=== PATIENT | male | born 1995 | race Caucasian/White ===

== ENCOUNTER 2017-11-06 10:05 | Emergency (ER) | payer SELFPAY ==
[2016-09-07 09:07] VITALS: Ht 175.3 cm; Wt 69.9 kg
[~2017-11-06] VITALS: Ht 175.3 cm; Wt 69.9 kg
[~2017-11-06 10:05] MED LIST: ATO10 PO; BUPR-133 PO; FEXO180T74 PO; FLU10 PO; LOR10 PO; MULT-1379 PO; PROAIRPT IH; RIS1 PO; RISP1SOL PO; SERT-1 PO; SERT-173 PO; TRAZ-156 PO; [UNRECOGNIZED DRUG - CODE] IH
[2017-11-06] MEDS ORDERED: NS(*) 0.9% 1000 ML BAG 1,000 ML IV ONE ×2 (10:07)
[2017-11-06] MEDS ORDERED: ONDANSETRON 4 MG/2 ML VIAL IVP ONE (10:10)
--- NOTE | 2017-11-06 10:13 | ER Report ---
History and Physical Time Seen By MD: 10:11 HPI/ROS CHIEF COMPLAINT: Persistent vomiting HISTORY OF PRESENT ILLNESS: 22-year-old male who went out drinking last night had significantly too much alcohol and started vomiting about 2 hours prior to presentation and has been not able to hold anything down patient otherwise unremarkable some mild epigastric discomfort otherwise negative no additional complaints noted REVIEW OF SYSTEMS: Respiratory: No cough, no dyspnea. Cardiovascular: No chest pain, no palpitations. Gastrointestinal: has vomiting, no abdominal pain. Musculoskeletal: No back pain. Remainder of the 14 system rev: Yes Allergies: Coded Allergies: No Known Drug Allergies (Unverified , 10/09/17) Home Meds No Active Prescriptions or Reported Meds Reviewed Nurses Notes: Yes Old Medical Records Reviewed: Yes Hx Smoking: Yes Smoking Status: Current: Some Days Smoker Exposure to Second Hand Smoke?: Yes Hx Substance Use Disorder: Yes Hx Alcohol Use: Yes Constitutional Vital Sign - Last 24 Hours 11/06/17 10:10 Pulse 81 Resp 16 Pulse Ox 98 O2 Delivery Room Air Physical Exam General Appearance: The patient is alert, has no immediate need for airway protection and no current signs of toxicity. Appears ill no active vomiting Eyes: Pupils equal and round no injection. Respiratory: Chest is non tender, lungs are clear to auscultation. Cardiac: regular rate and rhythm [ ] Gastrointestinal: Abdomen is soft and non tender, no masses, bowel sounds normal. Musculoskeletal: Neck: Neck is supple and non tender. Extremities have full range of motion and are non tender. Skin: No rashes or lesions. [ ] DIFFERENTIAL DIAGNOSIS: After history and physical exam differential diagnosis was considered for alcoholic gastritis alcoholic induced vomiting alcohol abuse Medical Decision Making Data Points Result Diagram: 11/06/17 1025 11/06/17 1025 Laboratory Hematology Test 11/06/17 10:12 11/06/17 10:25 Urine Color Yellow Urine Clarity Clear Urine pH 6.0 pH (4.8-9.5) Urine Specific [place] 1.025 Urine Protein 100 mg/dL (NEGATIVE) Urine Glucose (UA) Negative mg/dL (NEGATIVE) Urine Ketones Trace mg/dL (NEGATIVE) Urine Blood Negative (NEGATIVE) Urine Nitrite Negative (NEGATIVE) Urine Bilirubin Negative (NEGATIVE) Urine Urobilinogen 2.0 mg/dL (0.2-1.9) Urine Leukocyte Esterase Negative (NEGATIVE) Urine RBC <1 /HPF (0-2/HPF) Urine WBC <1 /HPF (0-5/HPF) Urine Squamous Epithelial Cells None /LPF (</=FEW) Urine Transitional Epithelial Cells Few /LPF (NONE-FEW) Urine Bacteria Negative /HPF (NONE-FEW) Urine Mucus Few /HPF (NONE-FEW) Red Blood Count 6.07 M/uL (4.00-5.60) Mean Corpuscular Volume 88.6 fL (80.0-96.0) Mean Corpuscular Hemoglobin 30.4 pg (26.0-33.0) Mean Corpuscular Hemoglobin Concent 34.3 g/dL (32.0-36.0) Red Cell Distribution Width 13.5 % (11.5-14.5) Mean Platelet Volume 8.3 fL (7.2-11.1) Neutrophils (%) (Auto) 88.2 % (39.4-72.5) Lymphocytes (%) (Auto) 5.9 % (17.6-49.6) Monocytes (%) (Auto) 4.8 % (4.1-12.4) Eosinophils (%) (Auto) 0.5 % (0.4-6.7) Basophils (%) (Auto) 0.6 % (0.3-1.4) Nucleated RBC Relative Count (auto) 0.0 /100WBC Neutrophils # (Auto) 15.3 K/uL (2.0-7.4) Lymphocytes # (Auto) 1.0 K/uL (1.3-3.6) Monocytes # (Auto) 0.8 K/uL (0.3-1.0) Eosinophils # (Auto) 0.1 K/uL (0.0-0.5) Basophils # (Auto) 0.1 K/uL (0.0-0.1) Nucleated RBC Absolute Count (auto) 0.00 K/uL Sodium Level 143 mmol/L (137-145) Potassium Level 4.0 mmol/L (3.5-5.0) Chloride Level 105 mmol/L (98-107) Carbon Dioxide Level 23 mmol/L (22-30) Blood Urea Nitrogen 12 mg/dl (9-21) Creatinine 0.80 mg/dl (0.66-1.25) Glomerular Filtration Rate Calc > 60.0 Random Glucose 120 mg/dl (75-110) Calcium Level 10.0 mg/dl (8.4-10.2) Total Bilirubin 0.7 mg/dl (0.2-1.3) Aspartate Amino Transf (AST/SGOT) 25 U/L (0-35) Alanine Aminotransferase (ALT/SGPT) 45 U/L (0-56) Alkaline Phosphatase 96 U/L (0-126) Total Protein 8.2 gm/dl (6.3-8.2) Albumin 5.0 g/dl (3.5-5.0) Lipase 29 U/L (23-300) Serum Alcohol 66 mg/dl Chemistry Test 11/06/17 10:12 11/06/17 10:25 Urine Color Yellow Urine Clarity Clear Urine pH 6.0 pH (4.8-9.5) Urine Specific [place] 1.025 Urine Protein 100 mg/dL (NEGATIVE) Urine Glucose (UA) Negative mg/dL (NEGATIVE) Urine Ketones Trace mg/dL (NEGATIVE) Urine Blood Negative (NEGATIVE) Urine Nitrite Negative (NEGATIVE) Urine Bilirubin Negative (NEGATIVE) Urine Urobilinogen 2.0 mg/dL (0.2-1.9) Urine Leukocyte Esterase Negative (NEGATIVE) Urine RBC <1 /HPF (0-2/HPF) Urine WBC <1 /HPF (0-5/HPF) Urine Squamous Epithelial Cells None /LPF (</=FEW) Urine Transitional Epithelial Cells Few /LPF (NONE-FEW) Urine Bacteria Negative /HPF (NONE-FEW) Urine Mucus Few /HPF (NONE-FEW) White Blood Count 17.3 k/uL (4.5-11.0) Red Blood Count 6.07 M/uL (4.00-5.60) Hemoglobin 18.5 g/dL (14.0-18.0) Hematocrit 53.8 % (42.0-52.0) Mean Corpuscular Volume 88.6 fL (80.0-96.0) Mean Corpuscular Hemoglobin 30.4 pg (26.0-33.0) Mean Corpuscular Hemoglobin Concent 34.3 g/dL (32.0-36.0) Red Cell Distribution Width 13.5 % (11.5-14.5) Platelet Count 329 K/uL (150-450) Mean Platelet Volume 8.3 fL (7.2-11.1) Neutrophils (%) (Auto) 88.2 % (39.4-72.5) Lymphocytes (%) (Auto) 5.9 % (17.6-49.6) Monocytes (%) (Auto) 4.8 % (4.1-12.4) Eosinophils (%) (Auto) 0.5 % (0.4-6.7) Basophils (%) (Auto) 0.6 % (0.3-1.4) Nucleated RBC Relative Count (auto) 0.0 /100WBC Neutrophils # (Auto) 15.3 K/uL (2.0-7.4) Lymphocytes # (Auto) 1.0 K/uL (1.3-3.6) Monocytes # (Auto) 0.8 K/uL (0.3-1.0) Eosinophils # (Auto) 0.1 K/uL (0.0-0.5) Basophils # (Auto) 0.1 K/uL (0.0-0.1) Nucleated RBC Absolute Count (auto) 0.00 K/uL Glomerular Filtration Rate Calc > 60.0 Calcium Level 10.0 mg/dl (8.4-10.2) Total Bilirubin 0.7 mg/dl (0.2-1.3) Aspartate Amino Transf (AST/SGOT) 25 U/L (0-35) Alanine Aminotransferase (ALT/SGPT) 45 U/L (0-56) Alkaline Phosphatase 96 U/L (0-126) Total Protein 8.2 gm/dl (6.3-8.2) Albumin 5.0 g/dl (3.5-5.0) Lipase 29 U/L (23-300) Serum Alcohol 66 mg/dl Toxicology Test 11/06/17 10:25 Serum Alcohol 66 mg/dl Urinalysis Test 11/06/17 10:12 Urine Color Yellow Urine Clarity Clear Urine pH 6.0 pH (4.8-9.5) Urine Specific [place] 1.025 Urine Protein 100 mg/dL (NEGATIVE) Urine Glucose (UA) Negative mg/dL (NEGATIVE) Urine Ketones Trace mg/dL (NEGATIVE) Urine Blood Negative (NEGATIVE) Urine Nitrite Negative (NEGATIVE) Urine Bilirubin Negative (NEGATIVE) Urine Urobilinogen 2.0 mg/dL (0.2-1.9) Urine Leukocyte Esterase Negative (NEGATIVE) Urine RBC <1 /HPF (0-2/HPF) Urine WBC <1 /HPF (0-5/HPF) Urine Squamous Epithelial Cells None /LPF (</=FEW) Urine Transitional Epithelial Cells Few /LPF (NONE-FEW) Urine Bacteria Negative /HPF (NONE-FEW) Urine Mucus Few /HPF (NONE-FEW) ED Course/Re-evaluation ED Course 22-year-old male given emergency department today after having heavy intoxicating alcohol consumption last night alcohol level still 66 on arrival here proximated to 10 hours after reportedly last consumption clearly dehydrated get 2 L of fluid basin labs were relatively unremarkable feels better with antiemetics diagnosis will be 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
[2017-11-06 10:47] LABS: PLATELET COUNT, AUTOMATED 329 K/uL (150-450)
[2017-11-06 11:22] VITALS: BP 135/81
== END 2017-11-06 11:25 | disposition home or self-care (01) ==
LOC: ER 10:32
DX: F10.920 Alcohol use, unspecified with intoxication, uncomplicated (principal); Y90.3 Blood alcohol level of 60-79 mg/100 ml
CPT/HCPCS: 80320; 81001; 83690; 85025; 96361; 96374; 99284; J2405; J7030; 82040; 82247; 82310; 82374; 82435; 82565; 82947; 84075; 84132; 84155; 84295; 84450; 84460; 84520

== ENCOUNTER 2017-11-30 12:18 | Emergency (ER) | payer OTHER ==
[2016-09-07 09:07] VITALS: Ht 172.7 cm; Wt 72.6 kg
[~2017-11-30] VITALS: Ht 172.7 cm; Wt 72.6 kg
[~2017-11-30 12:18] MED LIST changes: -SERT-173 PO; +SERT20OR6 PO
--- NOTE | 2017-11-30 13:03 | ER Report ---
History and Physical Time Seen By MD: 12:27 Hx. of Stated Complaint: pt reports he was crawling out of an airspace unit after vacuuming, tried to step down on a ladder,ladder was not stable. pt fell backwards ~5ft off ground and hit back of head on metal vent with helmet on. pt states his helmet came off after "bouncing off of metal" and hit his head again. pt denies loc, neck and back pain. a&ox4, reports sensitivity to light and headache HPI/ROS CHIEF COMPLAINT: Head injury HISTORY OF PRESENT ILLNESS: 22-year-old male patient presents to emergency room with complaint of a fall. Patient states that he was at work and was climbing out of some duct work when he stepped on a ladder that was unstable. States when he was with him in the latter fell over him when he did he fell backwards falling approximate 5 feet and hit his head on the ground. He states that he lost his heart had during that time and his head again. He denies having any loss consciousness, neck pain, nausea, vomiting. Patient states that he does have a headache and does feel slightly dizzy. REVIEW OF SYSTEMS: Respiratory: No cough, no dyspnea. Cardiovascular: No chest pain, no palpitations. Gastrointestinal: No vomiting, no abdominal pain. Musculoskeletal: No back pain. Allergies: Coded Allergies: No Known Drug Allergies (Unverified , 11/30/17) Home Meds Active Scripts Ketorolac Tromethamine (KETOROLAC TROMETHAMINE) 10 Mg Tab, 10 MG PO Q6H, #20 TAB Prov:GAIL CASTANO JAYESH 11/30/17 Past Medical/Surgical History Patient has a past medical history of asthma, arthritis, fractures, back pain, substance abuse, alcohol use, PTSD, anger issues, anxiety, ADHD, suicide attempt. Patient has a surgical history of bilateral shoulder surgery Reviewed Nurses Notes: Yes Hx Smoking: Yes Smoking Status: Current: Some Days Smoker Exposure to Second Hand Smoke?: Yes Hx Substance Use Disorder: Yes Hx Alcohol Use: Yes Constitutional Vital Sign - Last 24 Hours 11/30/17 11/30/17 11/30/17 11/30/17 12:23 12:24 12:30 12:33 Temp 98.2 Pulse 60 74 Resp 16 B/P (MAP) 140/97 (111) 170/97 129/80 (96) Pulse Ox 97 96 O2 Delivery Room Air 11/30/17 11/30/17 11/30/17 11/30/17 12:38 12:43 12:48 12:58 Pulse 98 88 64 Pulse Ox 99 98 97 96 11/30/17 11/30/17 11/30/17 11/30/17 13:00 13:03 13:08 13:13 Pulse 72 73 63 B/P (MAP) 132/108 (116) Pulse Ox 97 97 97 11/30/17 11/30/17 11/30/17 11/30/17 13:18 13:23 13:28 13:30 Pulse 69 66 67 B/P (MAP) 131/57 (81) Pulse Ox 97 97 97 11/30/17 13:33 Pulse 60 Pulse Ox 97 Physical Exam General Appearance: The patient is alert, has no immediate need for airway protection and no current signs of toxicity. ENT: Tympanic membranes are pearly-tyson, auditory canals are patent, mucous membranes are moist. Respiratory: Chest is non tender, lungs are clear to auscultation. Cardiac: regular rate and rhythm Gastrointestinal: Abdomen is soft and non tender, no masses, bowel sounds normal. Musculoskeletal: Neck: Neck is supple and non tender. Extremities have full range of motion and are non tender. Skin: No rashes or lesions. Neuro: Patient is alert and oriented 4, cranial nerves II through XII grossly intact, patient was able to complete 3 word recall 3/3 at zero minutes, patient was unable to do serial sevens. DIFFERENTIAL DIAGNOSIS: After history and physical exam differential diagnosis was considered for concussion, intracranial bleed, skull fracture, cervical spine strain. Medical Decision Making EKG/Imaging Imaging HEAD W/O CONTRAST, C-SPINE W/O CONTRAST Provided history: fall from 5 feet, landing on head Additional pertinent history: none TECHNIQUE: Imaging was obtained from the skull base through the vertex, followed by spiral scan of the cervical spine without intravenous contrast. Source images were reformatted in the coronal sagittal planes. The cervical spine spiral source images were reformatted in the coronal and sagittal planes. One of the following dose optimization techniques was utilized in the performance of this exam: Automated exposure control; adjustment of the mA and/ or kV according to the patient's size; or use of an iterative reconstruction technique. Specific details can be referenced in the facility's radiology CT exam operational policy. COMPARISON STUDIES: None FINDINGS: BRAIN: Brain volume: Normal Acute cortical ischemia: None Chronic cortical and ganglionic ischemia: none significant Hemorrhage: None Masses / edema: None White matter: Normal Vessels: Normal Extra-axial: None significant Calvarium / scalp: Negative Skull base: Limited air cell development of the mastoid segments typically from old inflammatory disease. No acute mastoiditis. Visualized sinuses / orbits: negative CERVICAL SPINE: Extra-vertebral soft tissues: negative Acute bone and soft tissue findings: none Chronic / degenerative findings: none IMPRESSION: 1. Normal CT of the brain. No evidence of mass, acute ischemia or hemorrhage. 2. Normal assessment of the cervical spine. Report Dictated By: Francisco J Hoff MD at 11/30/2017 1:10 PM Report E-Signed By: Francisco J Hoff MD at 11/30/2017 1:14 PM ED Course/Re-evaluation ED Course Patient was admitted to examine, history and physical were obtained. Differential diagnoses were considered. On examination patient has no tenderness to his head nor his neck. A CT scan of the head and cervical spine were done. Those were read by the radiologist as negative. I discussed findings with patient. We will go ahead and discharge him home at this time. We'll go ahead and put him on an anti-inflammatory medication. He is return to emergency room if condition worsens. He is follow-up with his primary care provider next week with any concerns. Patient verbalized understanding and agreement. Decision to Disposition Date: Nov 30, 2017 Decision to Disposition Time: 13:23 Depart Departure Latest Vital Signs Vital Signs Date Time Temp Pulse Resp B/P (MAP) Pulse Ox O2 Delivery O2 Flow Rate FiO2 11/30/17 13:33 60 97 11/30/17 13:30 131/57 (81) 11/30/17 12:24 98.2 16 Room Air Impression: Primary Impression: Head contusion Additional Impression: Headache Condition: Improved Disposition: HOME OR SELF-CARE New Scripts Ketorolac Tromethamine (KETOROLAC TROMETHAMINE) 10 Mg Tab 10 MG PO Q6H, #20 TAB Prov: GAIL CASTANO JAYESH 11/30/17 Patient Instructions: Acute Headache (ED) Additional Instructions: Increase fluid intake. Get plenty of rest. Limit activity by pain. Follow up with your primary care provider in the next week. Return to the ER if condition worsens. You may take Tylenol as needed for pain. No ibuprofen while taking the Toradol. You may return to work tomorrow. Problem Qualifiers Primary Impression: Head contusion Encounter type: initial encounter Contusion of head detail: scalp Qualified Codes: S00.03XA - Contusion of scalp, initial encounter Additional Impression: Headache Headache type: post-traumatic Headache chronicity pattern: acute headache Intractability: not intractable Qualified Codes: G44.319 - Acute post- traumatic headache, not intractable GAIL CASTANO Nov 30, 2017 13:03
--- NOTE | 2017-11-30 13:19 | RADIOLOGY IMAGING REPORT ---
FACILITY: [facility] - [place] PATIENT NAME: Alejandro Mendez : 1995 MR: [id number] V: [id number] EXAM DATE: ORDERING PHYSICIAN: GAIL CASTANO TECHNOLOGIST: Location: [facility] [place] Patient: Alejandro Mendez : 1995 Visit/Account:[id number] Date of Sevice: 11/30/2017 HEAD W/O CONTRAST, C-SPINE W/O CONTRAST Provided history: fall from 5 feet, landing on head Additional pertinent history: none TECHNIQUE: Imaging was obtained from the skull base through the vertex, followed by spiral scan of th e cervical spine without intravenous contrast. Source images were reformatted in the coronal sagitta l planes. The cervical spine spiral source images were reformatted in the coronal and sagittal planes. One of the following dose optimization techniques was utilized in the performance of this exam: Autom ated exposure control; adjustment of the mA and/or kV according to the patient's size; or use of an i terative reconstruction technique. Specific details can be referenced in the facility's radiology CT exam operational policy. COMPARISON STUDIES: None FINDINGS: BRAIN: Brain volume: Normal Acute cortical ischemia: None Chronic cortical and ganglionic ischemia: none significant Hemorrhage: None Masses / edema: None White matter: Normal Vessels: Normal Extra-axial: None significant Calvarium / scalp: Negative Skull base: Limited air cell development of the mastoid segments typically from old inflammatory dis ease. No acute mastoiditis. Visualized sinuses / orbits: negative CERVICAL SPINE: Extra-vertebral soft tissues: negative Acute bone and soft tissue findings: none Chronic / degenerative findings: none IMPRESSION: 1. Normal CT of the brain. No evidence of mass, acute ischemia or hemorrhage. 2. Normal assessment of the cervical spine. Report Dictated By: Francisco J Hoff MD at 11/30/2017 1:10 PM Report E-Signed By: Francisco J Hoff MD at 11/30/2017 1:14 PM [id number]
--- NOTE | 2017-11-30 13:19 | RADIOLOGY IMAGING REPORT ---
FACILITY: [facility] - [place] PATIENT NAME: Alejandro Mendez : 1995 MR: [id number] V: [id number] EXAM DATE: ORDERING PHYSICIAN: GAIL CASTANO TECHNOLOGIST: Location: [facility] - [place] Patient: Alejandro Mendez : 1995 Visit/Account:[id number] Date of Sevice: 11/30/2017 HEAD W/O CONTRAST, C-SPINE W/O CONTRAST Provided history: fall from 5 feet, landing on head Additional pertinent history: none TECHNIQUE: Imaging was obtained from the skull base through the vertex, followed by spiral scan of th e cervical spine without intravenous contrast. Source images were reformatted in the coronal sagitta l planes. The cervical spine spiral source images were reformatted in the coronal and sagittal planes. One of the following dose optimization techniques was utilized in the performance of this exam: Autom ated exposure control; adjustment of the mA and/or kV according to the patient's size; or use of an i terative reconstruction technique. Specific details can be referenced in the facility's radiology CT exam operational policy. COMPARISON STUDIES: None FINDINGS: BRAIN: Brain volume: Normal Acute cortical ischemia: None Chronic cortical and ganglionic ischemia: none significant Hemorrhage: None Masses / edema: None White matter: Normal Vessels: Normal Extra-axial: None significant Calvarium / scalp: Negative Skull base: Limited air cell development of the mastoid segments typically from old inflammatory dis ease. No acute mastoiditis. Visualized sinuses / orbits: negative CERVICAL SPINE: Extra-vertebral soft tissues: negative Acute bone and soft tissue findings: none Chronic / degenerative findings: none IMPRESSION: 1. Normal CT of the brain. No evidence of mass, acute ischemia or hemorrhage. 2. Normal assessment of the cervical spine. Report Dictated By: Francisco J Hoff MD at 11/30/2017 1:10 PM Report E-Signed By: Francisco J Hoff MD at 11/30/2017 1:14 PM WSN:[id number]
[2017-11-30] MEDS ORDERED: KET10 PO (13:21)
[2017-11-30 13:30] VITALS: BP 131/57
== END 2017-11-30 13:30 | disposition home or self-care (01) ==
LOC: ER 12:29
DX: S00.03XA Contusion of scalp, initial encounter (principal); G44.319 Acute post-traumatic headache, not intractable; W11.XXXA Fall on and from ladder, initial encounter; Y99.0 Civilian activity done for income or pay
CPT/HCPCS: 70450; 72125; 99283

== ENCOUNTER 2017-12-18 05:08 | Emergency (ER) | payer SELFPAY ==
[2016-09-07 09:07] VITALS: Ht 172.7 cm; Wt 72.6 kg
[~2017-12-18] VITALS: Ht 172.7 cm; Wt 72.6 kg
[~2017-12-18 05:08] MED LIST changes: +KET10 PO; +SERT-173 PO; -SERT20OR6 PO
--- NOTE | 2017-12-18 05:12 | ER Report ---
History and Physical Time Seen By MD: 05:11 HPI/KORTNEY CHIEF COMPLAINT: Abdominal pain HISTORY OF PRESENT ILLNESS: 22-year-old male presents ambulatory to the ER with vomiting and abdominal pain for 2 days after consuming alcohol. He states he's had alcohol poisoning before. He drank much less than the previous time that caused him to have alcohol poisoning. He denies diarrhea. He denies blood in the emesis. He notes 6/10 epigastric cramping. REVIEW OF SYSTEMS: Respiratory: No cough, no dyspnea. Cardiovascular: No chest pain, no palpitations. Gastrointestinal: As above Musculoskeletal: No back pain. Allergies: Coded Allergies: No Known Drug Allergies (Unverified , 12/18/17) Home Meds Active Scripts Promethazine Hcl (PROMETHAZINE HCL) 25 Mg Tablet, 25 MG PO Q4H Y for NAUSEA/ VOMITING, #14 TAB Prov:BG FRENCH DO 12/18/17 Discontinued Scripts Ketorolac Tromethamine (KETOROLAC TROMETHAMINE) 10 Mg Tab, 10 MG PO Q6H, #20 TAB Prov:GAIL CASTANOP 11/30/17 Reviewed Nurses Notes: Yes Old Medical Records Reviewed: Yes Hx Smoking: Yes Smoking Status: Current: Some Days Smoker Exposure to Second Hand Smoke?: Yes Hx Substance Use Disorder: Yes Hx Alcohol Use: Yes Constitutional Vital Sign - Last 24 Hours 12/18/17 12/18/17 12/18/17 12/18/17 05:13 05:25 05:30 05:35 Temp 99.4 Pulse 74 ??? 65 91 Resp 14 B/P (MAP) 140/71 Pulse Ox 99 100 100 95 12/18/17 12/18/17 12/18/17 12/18/17 05:40 05:45 05:55 06:00 Pulse ??? 69 ? B/P (MAP) 120/61 (80) Pulse Ox 84 96 69 12/18/17 12/18/17 12/18/17 06:05 06:10 06:15 Pulse ? Physical Exam General Appearance: The patient is alert, has no immediate need for airway protection and no current signs of toxicity. Vital signs stable, afebrile, pulse ox normal HEENT: Pupils equal and round no injection. Oropharynx without redness or exudate Respiratory: Chest is non tender, lungs are clear to auscultation. Cardiac: regular rate and rhythm Gastrointestinal: Abdomen is soft and non tender, no masses, bowel sounds normal. Musculoskeletal: Neck: Neck is supple and non tender. Extremities have full range of motion and are non tender. Skin: No rashes or lesions. DIFFERENTIAL DIAGNOSIS: After history and physical exam differential diagnosis was considered for abdominal pain including but not limited to appendicitis, cholecystitis, gastritis, food poisoning, alcohol poisoning, gastroenteritis, viral syndrome and urinary tract infection. Medical Decision Making Data Points Result Diagram: 12/18/17 0532 12/18/17 0532 Laboratory Hematology Test 12/18/17 05:32 Red Blood Count 6.25 M/uL (4.00-5.60) Mean Corpuscular Volume 87.0 fL (80.0-96.0) Mean Corpuscular Hemoglobin 30.6 pg (26.0-33.0) Mean Corpuscular Hemoglobin Concent 35.2 g/dL (32.0-36.0) Red Cell Distribution Width 13.1 % (11.5-14.5) Mean Platelet Volume 8.4 fL (7.2-11.1) Neutrophils (%) (Auto) 78.2 % (39.4-72.5) Lymphocytes (%) (Auto) 7.6 % (17.6-49.6) Monocytes (%) (Auto) 13.8 % (4.1-12.4) Eosinophils (%) (Auto) 0.1 % (0.4-6.7) Basophils (%) (Auto) 0.3 % (0.3-1.4) Nucleated RBC Relative Count (auto) 0.0 /100WBC Neutrophils # (Auto) 5.6 K/uL (2.0-7.4) Lymphocytes # (Auto) 0.5 K/uL (1.3-3.6) Monocytes # (Auto) 1.0 K/uL (0.3-1.0) Eosinophils # (Auto) 0.0 K/uL (0.0-0.5) Basophils # (Auto) 0.0 K/uL (0.0-0.1) Nucleated RBC Absolute Count (auto) 0.00 K/uL Sodium Level 138 mmol/L (137-145) Potassium Level 3.8 mmol/L (3.5-5.0) Chloride Level 96 mmol/L (98-107) Carbon Dioxide Level 23 mmol/L (22-30) Blood Urea Nitrogen 15 mg/dl (9-21) Creatinine 0.90 mg/dl (0.66-1.25) Glomerular Filtration Rate Calc > 60.0 Random Glucose 105 mg/dl (75-110) Calcium Level 10.4 mg/dl (8.4-10.2) Total Bilirubin 0.7 mg/dl (0.2-1.3) Aspartate Amino Transf (AST/SGOT) 28 U/L (0-35) Alanine Aminotransferase (ALT/SGPT) 47 U/L (0-56) Alkaline Phosphatase 104 U/L (0-126) Total Protein 8.6 gm/dl (6.3-8.2) Albumin 5.2 g/dl (3.5-5.0) Amylase Level 73 U/L (0-110) Lipase 59 U/L (23-300) Serum Alcohol < 10 mg/dl Chemistry Test 12/18/17 05:32 White Blood Count 7.1 k/uL (4.5-11.0) Red Blood Count 6.25 M/uL (4.00-5.60) Hemoglobin 19.1 g/dL (14.0-18.0) Hematocrit 54.4 % (42.0-52.0) Mean Corpuscular Volume 87.0 fL (80.0-96.0) Mean Corpuscular Hemoglobin 30.6 pg (26.0-33.0) Mean Corpuscular Hemoglobin Concent 35.2 g/dL (32.0-36.0) Red Cell Distribution Width 13.1 % (11.5-14.5) Platelet Count 246 K/uL (150-450) Mean Platelet Volume 8.4 fL (7.2-11.1) Neutrophils (%) (Auto) 78.2 % (39.4-72.5) Lymphocytes (%) (Auto) 7.6 % (17.6-49.6) Monocytes (%) (Auto) 13.8 % (4.1-12.4) Eosinophils (%) (Auto) 0.1 % (0.4-6.7) Basophils (%) (Auto) 0.3 % (0.3-1.4) Nucleated RBC Relative Count (auto) 0.0 /100WBC Neutrophils # (Auto) 5.6 K/uL (2.0-7.4) Lymphocytes # (Auto) 0.5 K/uL (1.3-3.6) Monocytes # (Auto) 1.0 K/uL (0.3-1.0) Eosinophils # (Auto) 0.0 K/uL (0.0-0.5) Basophils # (Auto) 0.0 K/uL (0.0-0.1) Nucleated RBC Absolute Count (auto) 0.00 K/uL Glomerular Filtration Rate Calc > 60.0 Calcium Level 10.4 mg/dl (8.4-10.2) Total Bilirubin 0.7 mg/dl (0.2-1.3) Aspartate Amino Transf (AST/SGOT) 28 U/L (0-35) Alanine Aminotransferase (ALT/SGPT) 47 U/L (0-56) Alkaline Phosphatase 104 U/L (0-126) Total Protein 8.6 gm/dl (6.3-8.2) Albumin 5.2 g/dl (3.5-5.0) Amylase Level 73 U/L (0-110) Lipase 59 U/L (23-300) Serum Alcohol < 10 mg/dl Toxicology Test 12/18/17 05:32 Serum Alcohol < 10 mg/dl ED Course/Re-evaluation Clinical Indication for ER IV: Hydration, IV Access ED Course Patient was admitted to an examination room. H&P was done. The differential diagnoses was considered. On clinical examination. Patient was treated with IV fluid hydration, Zofran, laboratory studies were unremarkable. Patient's discharged home. A conservative treatment plan of clear liquid diet and Phenergan for nausea control. Patient advised to follow-up with primary care if unimproved in 3-5 days. Decision to Disposition Date: Dec 18, 2017 Decision to Disposition Time: 06:12 Depart Departure Latest Vital Signs Vital Signs Date Time Temp Pulse Resp B/P (MAP) Pulse Ox O2 Delivery O2 Flow Rate FiO2 12/18/17 06:15 ??? 12/18/17 06:00 120/61 (80) 12/18/17 05:55 69 12/18/17 05:13 99.4 14 Impression: Primary Impression: Abdominal pain Additional Impressions: Vomiting Heartburn Condition: Improved Disposition: HOME OR SELF-CARE New Scripts Promethazine Hcl (PROMETHAZINE HCL) 25 Mg Tablet 25 MG PO Q4H Y for NAUSEA/VOMITING, #14 TAB Prov: BG FRENCH DO 12/18/17 Patient Instructions: Abdominal Pain (ED), Acute Nausea and Vomiting (ED) Additional Instructions: Follow clear liquid diet for 24-48 hours, then advance to the brat diet, bananas , rice, applesauce, toast Use Phenergan to control vomiting Take Prilosec 20 mg per day for one week to reduce stomach acid and heal heartburn symptoms Follow-up with your primary care if unimproved in 3-5 days Problem Qualifiers Primary Impression: Abdominal pain Abdominal location: epigastric Qualified Codes: R10.13 - Epigastric pain Additional Impressions: Vomiting Vomiting type: unspecified Vomiting Intractability: unspecified Nausea presence: with nausea Qualified Codes: R11.2 - Nausea with vomiting, unspecified BG FRENCH DO Dec 18, 2017 05:12
[2017-12-18] MEDS ORDERED: NS(*) 0.9% 1000 ML BAG 1,000 ML IV ONE (05:22)
[2017-12-18] MEDS ORDERED: KETOROLAC 30 MG/ML VIAL IVP ONE (05:25)
[2017-12-18] MEDS ORDERED: LIDOCAINE 2% VISC SLN 15ML UDC PO ONE (05:25)
[2017-12-18] MEDS ORDERED: MAG HYD/AL HYD/SIMETH 30ML UDC PO ONE (05:25)
[2017-12-18] MEDS ORDERED: ONDANSETRON 4 MG/2 ML VIAL IVP ONE (05:25)
[2017-12-18] MEDS ORDERED: LIDOCAINE 2% VISC SLN 15ML UDC ONE (05:29)
[2017-12-18 05:58] LABS: PLATELET COUNT, AUTOMATED 246 K/uL (150-450)
[2017-12-18 06:00] VITALS: BP 120/61
[2017-12-18] MEDS ORDERED: PROM-110 PO (06:15)
== END 2017-12-18 06:41 | disposition home or self-care (01) ==
LOC: ER 05:30
DX: R11.2 Nausea with vomiting, unspecified (principal); R10.13 Epigastric pain; R12 Heartburn
CPT/HCPCS: 80320; 82150; 83690; 85025; 96361; 96374; 96375; 99283; J1885; J2405; J7030; 82040; 82247; 82310; 82374; 82435; 82565; 82947; 84075; 84132; 84155; 84295; 84450; 84460; 84520

== ENCOUNTER 2018-11-06 04:03 | Emergency (ER) | payer MEDICAID ==
[2016-09-07 09:07] VITALS: Wt 77.1 kg
[~2018-11-06 04:03] MED LIST changes: +PROM-110 PO; -TRAZ-156 PO; +TRAZ50TA34 PO
--- NOTE | 2018-11-06 04:05 | ER Report ---
History and Physical Time Seen By MD: 03:55 HPI/ROS CHIEF COMPLAINT: long term clearance HISTORY OF PRESENT ILLNESS: This is a 23 year old male. He has been drinking tonight and did smoke a little marijuana. He is under arrest from the [employer]. He says he has chronic shoulder pain, the handcuffs are making it worse for him. No other pain. He has a slight cut over the right eyebrow. Some abrasions on his hands. Denies other pain. Denies headache. Denies neck or back pain. Allergies: Coded Allergies: No Known Drug Allergies (Unverified , 11/06/18) Home Meds Discontinued Scripts Promethazine Hcl (PROMETHAZINE HCL) 25 Mg Tablet, 25 MG PO Q4H PRN for NAUSEA/ VOMITING, #14 TAB Prov:BG FRENCH DO 12/18/17 Reviewed Nurses Notes: Yes Hx Smoking: Yes Smoking Status: Current: Some Days Smoker Exposure to Second Hand Smoke?: Yes Hx Substance Use Disorder: Yes Hx Alcohol Use: Yes Constitutional Vital Sign - Last 24 Hours 11/06/18 04:11 Temp 98.0 Pulse 83 Resp 20 B/P (MAP) 138/107 Pulse Ox 95 O2 Delivery Room Air Physical Exam General Appearance: Alert, anxious, not cooperating much. Eyes: Pupils equal and round no injection. ENT: Normal oral mucosa. Moist mucous membranes. Neck: Neck is supple and non tender. Respiratory: Chest is non tender, lungs are clear to auscultation. Cardiac: regular rate and rhythm Gastrointestinal: Abdomen is soft and non tender, no masses, bowel sounds normal. Musculoskeletal: Has some pain in right shoulder. No pain on palpation of the spine. Skin: Small laceration of right eyebrow. Abrasions on hands. DIFFERENTIAL DIAGNOSIS: After history and physical exam differential diagnosis was considered for gentleman here for long term clearance for alcohol intoxication Medical Decision Making ED Course/Re-evaluation ED Course Recommended cleaning out the wounds. Nothing appears to need sutures. No other tenderness of than the right shoulder pain. Otherwise cleared to go to long term at this time. Decision to Disposition Date: Nov 06, 2018 Decision to Disposition Time: 04:10 Depart Departure Latest Vital Signs Vital Signs Date Time Temp Pulse Resp B/P (MAP) Pulse Ox O2 Delivery O2 Flow Rate FiO2 11/06/18 04:11 98.0 83 20 138/107 95 Room Air Impression: Primary Impression: Alcohol intoxication Condition: Improved Disposition: HOME OR SELF-CARE Patient Instructions: Alcohol Intoxication (ED) Problem Qualifiers Primary Impression: Alcohol intoxication Complication of substance-induced condition: uncomplicated Qualified Codes: F10.920 - Alcohol use, unspecified with intoxication, uncomplicated GRETEL HUYNH MD Nov 06, 2018 04:05
[2018-11-06 04:11] VITALS: BP 138/107
== END 2018-11-06 04:32 ==
LOC: ER 04:09
DX: F10.920 Alcohol use, unspecified with intoxication, uncomplicated (principal); S01.111A Laceration without foreign body of right eyelid and periocular area, initial encounter; S60.512A Abrasion of left hand, initial encounter; S60.511A Abrasion of right hand, initial encounter
CPT/HCPCS: 99281